=== PATIENT | male | born 1985 | race Caucasian/White ===

== ENCOUNTER 2016-09-03 11:08 | Emergency (ER) | payer BC ==
[2016-09-03] MEDS ORDERED: Ketorolac 30 MG/ML SDV IVPUSH ONE (11:34)
--- NOTE | 2016-09-03 11:46 | EDM.PDOC ---
ED HPI Trauma - General Chief Complaint: Upper Extremity Injury/Pain Stated Complaint: RT SHOULDER INJURY Time Seen by Provider: 09/03/16 11:25 Source: Reports: Patient History Limitations: Reports: No limitations - History of Present Illness INITIAL COMMENTS - FREE TEXT/NARRATIVE: 30 year old male presents for evaluation and treatment of a right shoulder injury. Patient reports about one hour prior to arrival in the ER he fell onto his daughter's toy table. He reports pain to the right posterior shoulder and decreased range of motion to the right arm. He reports some tingling down into the right arm. No numbness. No pain to the right elbow, right wrist, neck, back. No treatments prior to arrival in ER. States he did not hit his head. No loss of consciousness. Patient is right handed. The patient did drive himself here. He reports that he has a history of "popping" the shoulder out of place . Occurred When: just prior to arrival Occurred Where: home Method of Injury: fall Pain/Injury Location: Reports: upper extremity, right Consciousness: Reports: no loss of consciousness Allergies/ADRs: Allergies No Known Allergies Allergy (Verified 09/03/16 11:24) Home Medications: Ambulatory Orders . [No Known Home Meds] 09/03/16 [Confirmed 09/03/16] Past Medical History - Past Health History Medical/Surgical History: Denies Medical/Surgical History HEENT History: Reports: Other (see below) Other HEENT History: wisdom teeth Musculoskeletal History: Reports: Other (see below) Other Musculoskeletal History: shoulder dislocations Social & Family History - Family History Family Medical History: Noncontributory - Tobacco Use Smoking Status *Q: Never Smoker - Caffeine Use Caffeine Use: Reports: Soda - Recreational Drug Use Recreational Drug Use: No Review of Systems - Review of Systems Review Of Systems: See Below Musculoskeletal: Reports: shoulder pain (right). Denies: hand pain Skin: Denies: bruising, erythema, wound Neurological: Reports: Tingling (right arm). Denies: Numbness, Syncope Trauma Exam - Physical Exam Exam: See Below Exam Limited By: No limitations General Appearance: Reports: alert, WD/WN, no apparent distress Throat/Mouth: Reports: Normal inspection, Normal lips, Normal teeth, Normal voice, No airway compromise Respiratory Exam: Reports: no respiratory distress Cardiovascular: Reports: normal peripheral pulses, regular rate, rhythm Extremities: Reports: no evidence of injury, pain with movement (unable to abduct, adduct, forward flex or extend right arm due to right shuolder pain; able to flex right elbow), tenderness (right posterior shoulder), other (no tenderness to the right scapula or the right clavicle) Neurologic: Reports: alert, normal mood/affect Skin: Reports: Normal color, Warm/dry. Denies: Ecchymosis Course - Vital Signs Last Recorded V/S: Last Vital Signs Temp 36.5 C 09/03/16 11:22 Pulse 82 09/03/16 12:57 Resp 16 09/03/16 12:57 BP 121/86 09/03/16 12:57 Pulse Ox 97 09/03/16 12:57 - Orders/Labs/Meds Orders: Active Orders 24 hr Category Date Time Status Shoulder Comp Rt [CR] Stat Exams 09/03/16 11:34 Taken Meds: Medications Discontinued Medications Generic Name Dose Route Start Last Admin Trade Name Freq PRN Reason Stop Dose Admin Ketorolac Tromethamine 30 mg 09/03/16 11:34 09/03/16 11:52 Toradol IVPUSH 09/03/16 11:35 30 mg ONETIME ONE Administration - Radiology Interpretation Free Text/Narrative:: Xray of the right shoulder reviewed by myself and Dr. Byrne. No acute fractures or dislocations appreciated. - Re-Assessments/Exams Free Text/Narrative Re-Assessment/Exam: 09/03/16 12:29 I reviewed the xray results with the patient. No fractures or dislocations appreciated. Likely bruising. Patient reports no pain relief from the toradol. Will prescribe percocet for pain. Shoulder sling for comfort and immobilization. Discharge instructions as documented. Departure - Departure Time of Disposition: 12:36 Disposition: Home, Self-Care 01 Condition: fair Clinical Impression: Right shoulder injury Instructions: Shoulder Pain, [id number] Referrals: PCP,None [Primary Care Provider] - Forms: ED Department Discharge Additional Instructions: Rx for percocet 5-325mg tabs #20 1-2 tabs PO every 4-6 hours prn pain Use the shoulder sling for comfort. Remove the arm from the sling and preform pendulum arm circles 3 or 4 times a day to prevent a frozen shoulder. Ice the shoulder 3 times a day for 10-15 minutes. [id number] ibuprofen as needed for pain. may take the Percocet 1-2 tabs every 4-6 hours as needed for severe pain. There is Tylenol in Percocet. Do not exceed more than 4 g of Tylenol from all sources in one day. No driving or operating machinery within 12 hours of taking the Percocet. Percocet can be habit-forming, I recommend you take as few of these as needed to control your pain. Expect To be sore for the next week. The first 3 days will be the worst. Follow up with family medicine if you are not better within one week. Call [phone] to schedule with a provider at the [facility] or [phone] to schedule with a provider at the [facility]. Please return to the ER should your symptoms change or worsen. - My Orders Last 24 Hours: My Active Orders 09/03/16 11:34 Shoulder Comp Rt [CR] Stat - Assessment/Plan Last 24 Hours: My Active Orders 09/03/16 11:34 Shoulder Comp Rt [CR] Stat
[2016-09-03 12:59] VITALS: BP 121/86
--- NOTE | 2016-09-05 10:34 | CR ---
Right shoulder: Three views of the right shoulder were obtained. Comparison: No previous study. Calcification is seen over lapping the superior glenoid. Uncertain if this is within the joint representing loose body. Glenohumeral joint is otherwise unremarkable. Acromioclavicular joint is unremarkable. No acute fracture or other abnormality is seen. Impression: 1. Small bony density overlapping the superior glenoid, difficult to exclude loose body. 2. Nothing acute is appreciated on right shoulder study. Diagnostic code #3
== END 2016-09-03 13:00 | disposition home or self-care (01) ==
LOC: JD.ED 11:08
DX: S49.91XA Unspecified injury of right shoulder and upper arm, initial encounter (principal); W19.XXXA Unspecified fall, initial encounter
CPT/HCPCS: 73030; 96374; 99284; J1885